=== PATIENT | female | born 1935 | race Caucasian/White ===

== ENCOUNTER 2019-02-09 08:59 | Emergency (ER) | payer MEDICARE, BC ==
[~2019-02-09] VITALS: Ht 165.1 cm; Wt 55.0 kg
[2019-02-09] MEDS ORDERED: SODIUM CHLORIDE 0.9% 500 ML IV ONE (09:56)
[2019-02-09 11:34] LABS: BASOPHILS % 0.7 % (0.0-2.0); HEMATOCRIT. 31.9 % (36.0-48.0); HEMOGLOBIN. 11.1 g/dL (12.0-16.0); LYMPHOCYTES % 15.9 % (20.0-50.0); MEAN PLATELET VOLUME 7.4 fl (7.4-10.4); MONOCYTES % 10.2 % (2.0-8.0); NEUTROPHILS % 71.2 % (40.0-76.0); PLATELET 306 x1000/uL (130-400); RED BLOOD CELL COUNT 3.36 mill/uL (4.2-5.4); RED CELL DISTRIBUTION WIDTH 14.4 % (11.6-14.6)
[2019-02-09 11:41] LABS: CHLORIDE 105 mEq/L (98-107)
[2019-02-09 11:48] LABS: CREATINE KINASE 52 IU/L (26-192)
[2019-02-09 12:24] LABS: CLARITY URINE CLEAR (CLEAR); COLOR URINE YELLOW (YELLOW); KETONES URINE NEGATIVE (NEGATIVE); LEUKOCYTE ESTERASE URINE NEGATIVE (NEGATIVE); NITRITE URINE NEGATIVE (NEGATIVE); OCCULT BLOOD URINE NEGATIVE (NEGATIVE); PH URINE 6.5 (4.5-8.0); PROTEIN URINE NEGATIVE (NEGATIVE); SPECIFIC GRAVITY URINE 1.009 (1.005-1.030); UROBILINOGEN URINE 0.2 E.U./dL (0.2-1.0)
[2019-02-09 13:20] VITALS: BP 158/80
== END 2019-02-09 13:21 | disposition home or self-care (01) ==
LOC: ER 09:04
DX: R53.1 Weakness (principal); K59.00 Constipation, unspecified; J44.9 Chronic obstructive pulmonary disease, unspecified; I10 Essential (primary) hypertension
CPT/HCPCS: 36415; 70450; 71045; 80053; 81003; 82550; 82962; 83690; 83735; 83880; 84484; 85025; 93005; 99284; J7030

== ENCOUNTER 2019-05-25 08:06 | Inpatient (IN) | payer MEDICARE, BC ==
[~2019-05-25] VITALS: Ht 132.1 cm; Wt 47.6 kg
[2019-05-25] MEDS ORDERED: ASCO100T12 PO (08:18)
[2019-05-25] MEDS ORDERED: FLUT1AER IH (08:18)
[2019-05-25] MEDS ORDERED: LOSA50TA41 PO (08:18)
[2019-05-25] MEDS ORDERED: DOCU50LI25 PO (08:18)
[2019-05-25] MEDS ORDERED: HYDR5TAB8 PO (08:18)
[2019-05-25] MEDS ORDERED: AMLO10TA80 PO (08:18)
[2019-05-25] MEDS ORDERED: MULT-1195 PO (08:18)
[2019-05-25] MEDS ORDERED: ALBU4TAB6 PO (08:18)
[2019-05-25] MEDS ORDERED: CALC-30 PO (08:18)
[2019-05-25] MEDS ORDERED: FOLI20CA PO (08:18)
[2019-05-25] MEDS ORDERED: MOM PO (08:18)
[2019-05-25] MEDS ORDERED: ALD100 PO (08:18)
[2019-05-25] MEDS ORDERED: TOPUD PO (08:18)
[2019-05-25] MEDS ORDERED: OMEP10SU2 PO (08:18)
[2019-05-25] MEDS ORDERED: METO-396 PO (08:18)
[2019-05-25] MEDS ORDERED: TIMO5DRO27 OP (08:18)
[2019-05-25 10:02] LABS: BASOPHILS % 0.7 % (0.0-2.0); EOSINOPHILS % 1.4 % (0.0-5.0); HEMOGLOBIN. 13.4 g/dL (12.0-16.0); LYMPHOCYTES % 16.5 % (20.0-50.0); MEAN CORPUSCULAR HEMOGLOBIN 33.8 pg (28.0-32.0); MEAN CORPUSCULAR VOLUME 95.9 fL (81.0-99.0); MEAN PLATELET VOLUME 7.8 fl (7.4-10.4); MONOCYTES % 9.3 % (2.0-8.0); NEUTROPHILS % 72.1 % (40.0-76.0); PLATELET 309 x1000/uL (130-400); RED BLOOD CELL COUNT 3.96 mill/uL (4.2-5.4); RED CELL DISTRIBUTION WIDTH 15.8 % (11.6-14.6)
[2019-05-25 10:04] LABS: CHLORIDE 103 mEq/L (98-107)
[2019-05-25] MEDS ORDERED: SODIUM CHLORIDE 0.45% 1,000 ML IV SCH (14:37)
[2019-05-25] MEDS ORDERED: ZOLPIDEM TARTRATE 5MG TABLET PO PRN (14:45)
[2019-05-25] MEDS ORDERED: ACETAMINOPHEN 325MG TABLET PO PRN (14:45)
[2019-05-25] MEDS ORDERED: CLONIDINE 0.1MG TABLET PO PRN (14:45)
[2019-05-25] MEDS ORDERED: MAGNESIUM/ALUMINUM HYDROXIDE/SIMETHICONE 30ML UDC PO PRN (14:45)
[2019-05-25] MEDS ORDERED: HYDROCODONE/ACETAMINOPHEN 5/325MG TABLET PO PRN (14:45)
[2019-05-25] MEDS ORDERED: GUAIFENESIN 200MG/10ML SUGAR FREE UDC PO PRN (14:45)
[2019-05-25] MEDS ORDERED: ONDANSETRON HCL 4MG/2ML INJ IV PRN (14:45)
[2019-05-25] MEDS ORDERED: IPRATROPIUM/ALBUTEROL 0.5-3(2.5)MG/3ML NEB NEB PRN (14:45)
[2019-05-25] MEDS ORDERED: DOCUSATE SODIUM 100MG CAPSULE PO PRN (14:45)
[2019-05-25] MEDS ORDERED: AMLODIPINE 10MG TABLET PO NR (16:00)
[2019-05-25 20:35] VITALS: BP 156/105
[2019-05-25] MEDS ORDERED: IBUP100T53 PO (23:46)
[2019-05-25] MEDS ORDERED: TIOT18CA3 IH (23:46)
[2019-05-26] VITALS: BP 135/69
[2019-05-26 04:00] VITALS: BP 119/61
[2019-05-26 07:17] LABS: BASOPHILS % 0.7 % (0.0-2.0); EOSINOPHILS % 1.6 % (0.0-5.0); HEMATOCRIT. 36.5 % (36.0-48.0); HEMOGLOBIN. 12.8 g/dL (12.0-16.0); LYMPHOCYTES % 17.6 % (20.0-50.0); MEAN CORPUSCULAR HEMOGLOBIN 33.8 pg (28.0-32.0); MEAN CORPUSCULAR VOLUME 96.3 fL (81.0-99.0); MEAN PLATELET VOLUME 7.9 fl (7.4-10.4); MONOCYTES % 10.1 % (2.0-8.0); PLATELET 253 x1000/uL (130-400); RED BLOOD CELL COUNT 3.79 mill/uL (4.2-5.4); RED CELL DISTRIBUTION WIDTH 16.7 % (11.6-14.6)
[2019-05-26 07:27] LABS: CHLORIDE 102 mEq/L (98-107)
[2019-05-26 08:00] VITALS: BP 99/54
[2019-05-26 08:03] LABS: LDL CHOLESTEROL 76 mg/dL (5-100)
[2019-05-26 08:06] LABS: HDL CHOLESTEROL 73 mg/dL (40-59); T4 FREE 1.35 ng/dL (0.76-1.46)
[2019-05-26] MEDS ORDERED: AMLODIPINE 10MG TABLET PO SCH (09:00)
[2019-05-26] MEDS ORDERED: ENOXAPARIN 30MG/0.3ML SYR SUBCUT SCH (09:00)
[2019-05-26] MEDS: SODIUM CHLORIDE 1000MG TABLET PO SCH ×2 (10:00→13:00)
[2019-05-26] MEDS ORDERED: PANTOPRAZOLE 40MG DR TABLET PO SCH (10:00)
[2019-05-26] MEDS ORDERED: ALBUTEROL 6.7GM HFA INHALER ORI PRN (10:00)
[2019-05-26] MEDS ORDERED: ASCORBIC ACID 500 MG TABLET PO SCH (11:00)
[2019-05-26] MEDS ORDERED: FOLIC ACID 1MG TABLET PO SCH (11:00)
[2019-05-26] MEDS ORDERED: SPIRONOLACTONE 50MG TABLET PO SCH (11:00)
[2019-05-26] MEDS ORDERED: HYDROCORTISONE 10MG TABLET PO SCH (11:00)
[2019-05-26 11:57] VITALS: BP 130/77
[2019-05-26 12:00] VITALS: BP 130/77
== END 2019-05-26 15:20 | disposition home or self-care (01) | DRG 74 ==
LOC: ER 08:06 → 6WST 13:55 → ENRESERV 19:01
PROVIDERS: ADMIT Hospitalist; ATTEND Hospitalist
DX: G90.8 Other disorders of autonomic nervous system (principal); E44.1 Mild protein-calorie malnutrition; E86.0 Dehydration; I10 Essential (primary) hypertension; J45.909 Unspecified asthma, uncomplicated; J44.9 Chronic obstructive pulmonary disease, unspecified; Z85.828 Personal history of other malignant neoplasm of skin; Z68.27 Body mass index [BMI] 27.0-27.9, adult
CPT/HCPCS: 36415; 71045; 80053; 80061; 83880; 84439; 84443; 84484; 85025; 93005; 93306; 93970; 96360; 97161; 99285; J1650

== ENCOUNTER 2020-05-30 16:44 | Inpatient (IN) | payer MEDICARE, BC ==
[~2020-05-30] VITALS: Ht 162.6 cm; Wt 59.9 kg
[~2020-05-30 16:44] MED LIST: ALBU4TAB6 PO; IBUP100T53 PO; TIMO5DRO27 OP; TIOT18CA3 IH
[2020-05-30 18:00] LABS: BASOPHILS % 0.3 % (0.0-2.0); EOSINOPHILS % 0.9 % (0.0-5.0); HEMATOCRIT. 37.9 % (36.0-48.0); HEMOGLOBIN. 13.6 g/dL (12.0-16.0); LYMPHOCYTES % 7.1 % (20.0-50.0); MEAN CORPUSCULAR HEMOGLOBIN 34.5 pg (28.0-32.0); MEAN CORPUSCULAR VOLUME 96.2 fL (81.0-99.0); MEAN PLATELET VOLUME 6.8 fl (7.4-10.4); MONOCYTES % 5.8 % (2.0-8.0); NEUTROPHILS % 85.9 % (40.0-76.0); PLATELET 323 x1000/uL (130-400); RED BLOOD CELL COUNT 3.94 mill/uL (4.2-5.4); RED CELL DISTRIBUTION WIDTH 14.5 % (11.6-14.6)
[2020-05-30 18:05] LABS: CHLORIDE 93 mEq/L (98-107)
[2020-05-30 18:09] LABS: ETHANOL BLOOD < 10 mg/dL
[2020-05-30] MEDS ORDERED: CEFTRIAXONE 1 G PREMIX 50 ML IV ONE (18:45)
[2020-05-30] MEDS ORDERED: AZITHROMYCIN 500 MG in DEXT 5% WATER 250 ML IV SCH (18:45)
[2020-05-30] MEDS ORDERED: DOCUSATE SODIUM 100MG CAPSULE PO PRN (20:30)
[2020-05-30] MEDS ORDERED: IPRATROPIUM/ALBUTEROL 0.5-3(2.5)MG/3ML NEB HHN PRN (20:30)
[2020-05-30] MEDS ORDERED: MAGNESIUM/ALUMINUM HYDROXIDE/SIMETHICONE 30ML UDC PO PRN (20:30)
[2020-05-30] MEDS ORDERED: ACETAMINOPHEN 325MG TABLET PO PRN (20:30)
[2020-05-30] MEDS ORDERED: CLONIDINE 0.1MG TABLET PO PRN (20:30)
[2020-05-30] MEDS: SODIUM CHLORIDE 0.9% 1,000 ML IV SCH (20:30)
[2020-05-30] MEDS ORDERED: ONDANSETRON HCL 4MG/2ML INJ IV PRN (20:30)
[2020-05-30] MEDS ORDERED: GUAIFENESIN 200MG/10ML SUGAR FREE UDC PO PRN (20:30)
[2020-05-30 20:42] LABS: CLARITY URINE CLEAR (CLEAR); KETONES URINE NEGATIVE (NEGATIVE); LEUKOCYTE ESTERASE URINE TRACE (NEGATIVE); NITRITE URINE NEGATIVE (NEGATIVE); OCCULT BLOOD URINE NEGATIVE (NEGATIVE); PROTEIN URINE NEGATIVE (NEGATIVE); SPECIFIC GRAVITY URINE 1.011 (1.005-1.030); UROBILINOGEN URINE 0.2 E.U./dL (0.2-1.0)
[2020-05-30] MEDS: PIPERACILLIN/TAZ 3.375G PREMIX 50 ML IV SCH (21:00)
[2020-05-30 21:07] LABS: *COCAINE SCREEN URINE NEGATIVE (NEGATIVE); COLOR URINE YELLOW (YELLOW); METHADONE URINE SCREEN NEGATIVE (NEGATIVE); OPIATES URINE SCREEN NEGATIVE (NEGATIVE); PHENCYCLIDINE URINE SCREEN NEGATIVE (NEGATIVE)
[2020-05-30 21:08] LABS: *AMPHETAMINES SCREEN URINE NEGATIVE (NEGATIVE); *BARBITURATES SCREEN URINE NEGATIVE (NEGATIVE); *BENZODIAZEPINES SCREEN URINE NEGATIVE (NEGATIVE); CANNABINOID URINE SCREEN NEGATIVE (NEGATIVE)
[2020-05-30] MEDS: ENOXAPARIN 40MG/0.4ML SYR SUBCUT SCH (21:16)
[2020-05-31 04:54] LABS: BASOPHILS % 0.3 % (0.0-2.0); EOSINOPHILS % 2.5 % (0.0-5.0); HEMATOCRIT. 36.9 % (36.0-48.0); LYMPHOCYTES % 13.8 % (20.0-50.0); MEAN CORPUSCULAR HEMOGLOBIN 33.7 pg (28.0-32.0); MEAN CORPUSCULAR VOLUME 95.6 fL (81.0-99.0); MEAN PLATELET VOLUME 7.1 fl (7.4-10.4); MONOCYTES % 8.6 % (2.0-8.0); NEUTROPHILS % 74.8 % (40.0-76.0); PLATELET 330 x1000/uL (130-400); RED BLOOD CELL COUNT 3.86 mill/uL (4.2-5.4); RED CELL DISTRIBUTION WIDTH 14.6 % (11.6-14.6)
[2020-05-31 04:59] LABS: CHLORIDE 97 mEq/L (98-107)
[2020-05-31 05:06] LABS: LDL CHOLESTEROL 91 mg/dL (5-100)
[2020-05-31 05:07] LABS: HDL CHOLESTEROL 91 mg/dL (40-59)
[2020-05-31] MEDS: PIPERACILLIN/TAZ 3.375G PREMIX 50 ML IV SCH (05:54)
[2020-05-31] MEDS: ASPIRIN 81MG EC TABLET PO SCH (09:00)
[2020-05-31 10:54] VITALS: BP 122/78
[2020-05-31] MEDS ORDERED: FLUT1DIS3 INH (12:39)
[2020-05-31] MEDS ORDERED: METO-396 MT (12:41)
[2020-05-31] MEDS ORDERED: HYDR20TA22 MT (12:42)
[2020-05-31] MEDS ORDERED: AMLO5TAB88 MT (12:42)
[2020-05-31] MEDS ORDERED: SPIR25TA MT (12:43)
[2020-05-31] MEDS ORDERED: LOSA25TA26 MT (12:43)
[2020-05-31] MEDS ORDERED: FOLI20CA PO (12:44)
[2020-05-31] MEDS ORDERED: DOCU100T MT (12:45)
[2020-05-31] MEDS ORDERED: OMEP40CA12 MT (12:45)
[2020-05-31] MEDS ORDERED: CALC1TAB4 MT (12:48)
[2020-05-31] MEDS ORDERED: MULT1TAB7 MT (12:48)
[2020-05-31] MEDS ORDERED: CHOL1CRY2 MC (12:49)
[2020-05-31] MEDS ORDERED: CLOP75TA33 MT (12:50)
[2020-05-31] MEDS: PIPERACILLIN/TAZOBACTAM 3.375 G in DEXT 5% WATER 100 ML IV SCH ×2 (14:10→21:38)
[2020-05-31] MEDS: SODIUM CHLORIDE 0.9% 1,000 ML IV SCH ×2 (14:10→21:39)
[2020-05-31 20:00] VITALS: BP 125/64
[2020-05-31] MEDS: ENOXAPARIN 40MG/0.4ML SYR SUBCUT SCH (21:37)
[2020-06-01] VITALS: BP 136/66
[2020-06-01 04:00] VITALS: BP 132/59
[2020-06-01] MEDS: PIPERACILLIN/TAZOBACTAM 3.375 G in DEXT 5% WATER 100 ML IV SCH ×4 (05:48→21:01)
[2020-06-01 08:00] VITALS: BP 128/54
[2020-06-01] MEDS: ASPIRIN 81MG EC TABLET PO SCH (09:19)
[2020-06-01] MEDS: OMEPRAZOLE 20MG CAPSULE EXTENDED RELEASE PO SCH (10:35)
[2020-06-01] MEDS: FOLIC ACID 1MG TABLET PO SCH (10:35)
[2020-06-01] MEDS: DOCUSATE SODIUM 100MG CAPSULE PO SCH ×2 (10:36→18:11)
[2020-06-01] MEDS: CLOPIDOGREL 75MG TABLET PO SCH (10:36)
[2020-06-01] MEDS: LOSARTAN POTASSIUM 25 MG TABLET PO SCH (10:36)
[2020-06-01] MEDS: SPIRONOLACTONE 25MG TABLET PO SCH (10:41)
[2020-06-01] MEDS: SODIUM CHLORIDE 0.9% 1,000 ML IV SCH (13:13)
[2020-06-01 13:49] VITALS: BP 144/87
[2020-06-01] MEDS ORDERED: LACTULOSE 20G/30ML UDC PO PRN ×2 (14:30→14:45)
[2020-06-01] MEDS ORDERED: NA PHOS,M-B/NA PHOS,DI-BA ENEMA 118ML PR NR (14:43)
[2020-06-01 16:00] VITALS: BP 137/72
[2020-06-01 20:00] VITALS: BP 135/66
[2020-06-01] MEDS: TIMOLOL MALEATE 0.5% OPHTH DROPS 5ML EACHEYE SCH (20:43)
[2020-06-01] MEDS: ENOXAPARIN 40MG/0.4ML SYR SUBCUT SCH (20:43)
[2020-06-02] VITALS (7 sets, daily range): BP systolic 133–171; BP diastolic 68–90
[2020-06-02] MEDS: SODIUM CHLORIDE 0.9% 1,000 ML IV SCH (00:49)
[2020-06-02] MEDS: PIPERACILLIN/TAZOBACTAM 3.375 G in DEXT 5% WATER 100 ML IV SCH (06:08)
[2020-06-02] MEDS: OMEPRAZOLE 20MG CAPSULE EXTENDED RELEASE PO SCH (06:13)
[2020-06-02] MEDS: DOCUSATE SODIUM 100MG CAPSULE PO SCH ×2 (08:48→17:57)
[2020-06-02] MEDS: FOLIC ACID 1MG TABLET PO SCH (08:49)
[2020-06-02] MEDS: AMLODIPINE 5MG TABLET PO SCH (08:49)
[2020-06-02] MEDS: SPIRONOLACTONE 25MG TABLET PO SCH (08:49)
[2020-06-02] MEDS: CLOPIDOGREL 75MG TABLET PO SCH (08:49)
[2020-06-02] MEDS: LOSARTAN POTASSIUM 25 MG TABLET PO SCH (08:50)
[2020-06-02] MEDS: ASPIRIN 81MG EC TABLET PO SCH (08:50)
[2020-06-02] MEDS: TIMOLOL MALEATE 0.5% OPHTH DROPS 5ML EACHEYE SCH ×2 (08:51→21:29)
[2020-06-02 10:46] LABS: CHLORIDE 90 mEq/L (98-107)
[2020-06-02 12:17] LABS: BASOPHILS % 0.9 % (0.0-2.0); HEMATOCRIT. 34.2 % (36.0-48.0); HEMOGLOBIN. 12.5 g/dL (12.0-16.0); LYMPHOCYTES % 11.2 % (20.0-50.0); MEAN CORPUSCULAR HEMOGLOBIN 34.6 pg (28.0-32.0); MEAN CORPUSCULAR VOLUME 94.7 fL (81.0-99.0); MONOCYTES % 11.8 % (2.0-8.0); NEUTROPHILS % 70.1 % (40.0-76.0); PLATELET 304 x1000/uL (130-400); RED BLOOD CELL COUNT 3.61 mill/uL (4.2-5.4); RED CELL DISTRIBUTION WIDTH 14.3 % (11.6-14.6)
[2020-06-02] MEDS: SODIUM CHLORIDE 1000MG TABLET PO SCH ×2 (12:51→17:57)
[2020-06-02] MEDS: HYDROCORTISONE 10MG TABLET PO SCH ×2 (13:01→17:56)
[2020-06-02] MEDS: ENOXAPARIN 40MG/0.4ML SYR SUBCUT SCH (21:30)
[2020-06-03] VITALS: BP 139/90
[2020-06-03 04:00] VITALS: BP 133/65
[2020-06-03 08:00] VITALS: BP 149/62
[2020-06-03 08:19] LABS: CHLORIDE 92 mEq/L (98-107)
[2020-06-03] MEDS: LOSARTAN POTASSIUM 25 MG TABLET PO SCH (09:00)
[2020-06-03] MEDS: AMLODIPINE 5MG TABLET PO SCH (09:00)
[2020-06-03] MEDS: OMEPRAZOLE 20MG CAPSULE EXTENDED RELEASE PO SCH (09:35)
[2020-06-03] MEDS: DOCUSATE SODIUM 100MG CAPSULE PO SCH ×2 (09:35→17:14)
[2020-06-03] MEDS: TIMOLOL MALEATE 0.5% OPHTH DROPS 5ML EACHEYE SCH ×2 (09:35→21:50)
[2020-06-03] MEDS: HYDROCORTISONE 10MG TABLET PO SCH ×2 (09:36→19:03)
[2020-06-03] MEDS: SODIUM CHLORIDE 1000MG TABLET PO SCH ×2 (09:37→17:14)
[2020-06-03] MEDS: SPIRONOLACTONE 25MG TABLET PO SCH (09:37)
[2020-06-03] MEDS: ASPIRIN 81MG EC TABLET PO SCH (09:37)
[2020-06-03] MEDS: FOLIC ACID 1MG TABLET PO SCH (09:42)
[2020-06-03] MEDS: CLOPIDOGREL 75MG TABLET PO SCH (10:07)
[2020-06-03 12:00] VITALS: BP 136/82
[2020-06-03 15:52] LABS: BG BASE EXCESS -3.7 mmol/L (-2.0-2.0); BG CARBOXYHEMOGLOBIN 1.3 % (0.5-1.5); BG DEOXYHEMOGLOBIN 3.4 % (0.0-5.0); BG FRACTION INSPIRED OXYGEN 21; BG HCO3 ACT 19.1 mmol/L (22.0-26.0); BG METHEMOGLOBIN 0.1 % (0.0-1.5); BG OXYGEN SATURATION 96.6 % (92.0-98.5); BG OXYHEMOGLOBIN 95.2 % (94.0-97.0); BG PCO2 28.6 mmHg (35.0-45.0); BG PH 7.443 (7.350-7.450); BG PO2 80.1 mmHg (75.0-100.0); BG SAMPLE SITE RIGHT BRACHIAL; BG TOTAL HEMOGLOBIN 12.9 g/dL (12.0-18.0); BG VENT MODE ROOM AIR
[2020-06-03 16:00] VITALS: BP 124/69
[2020-06-03] MEDS ORDERED: SODIUM CHLORIDE 3% 250 ML IV NR (16:00)
[2020-06-03 16:08] LABS: T4 FREE 1.79 ng/dL (0.76-1.46)
[2020-06-03] MEDS: FLUDROCORTISONE ACETATE 0.1MG TABLET PO SCH (17:02)
[2020-06-03 20:00] VITALS: BP 144/64
[2020-06-03] MEDS: ENOXAPARIN 40MG/0.4ML SYR SUBCUT SCH (21:50)
[2020-06-04 04:00] VITALS: BP 148/76
[2020-06-04 06:15] LABS: CHLORIDE 101 mEq/L (98-107)
[2020-06-04] MEDS ORDERED: HYDROCORTISONE 10MG TABLET PO SCH (07:00)
[2020-06-04 08:00] VITALS: BP 134/61
[2020-06-04] MEDS: LOSARTAN POTASSIUM 25 MG TABLET PO SCH (08:49)
[2020-06-04] MEDS: TIMOLOL MALEATE 0.5% OPHTH DROPS 5ML EACHEYE SCH (08:50)
[2020-06-04] MEDS: CLOPIDOGREL 75MG TABLET PO SCH (08:50)
[2020-06-04] MEDS: FLUDROCORTISONE ACETATE 0.1MG TABLET PO SCH (08:50)
[2020-06-04] MEDS: ASPIRIN 81MG EC TABLET PO SCH (08:54)
[2020-06-04] MEDS: DOCUSATE SODIUM 100MG CAPSULE PO SCH ×2 (08:54→17:00)
[2020-06-04] MEDS: AMLODIPINE 5MG TABLET PO SCH (08:54)
[2020-06-04] MEDS: FOLIC ACID 1MG TABLET PO SCH (08:54)
[2020-06-04] MEDS: SPIRONOLACTONE 25MG TABLET PO SCH (08:54)
[2020-06-04] MEDS: SODIUM CHLORIDE 1000MG TABLET PO SCH ×2 (08:54→17:00)
[2020-06-04] MEDS ORDERED: FAMOTIDINE 20MG TABLET PO SCH (09:00)
[2020-06-04 12:00] VITALS: BP 145/88
[2020-06-04 16:00] VITALS: BP 124/62
[2020-06-04 16:18] VITALS: BP 145/88
[2020-06-04] MEDS: HYDROCORTISONE 10MG TABLET PO SCH (19:00)
[2020-06-05 09:12] LABS: VITAMIN D 25-OH 66.3 ng/mL (30.0-100.0)
== END 2020-06-04 18:40 | disposition home health service (06) | DRG 190 ==
LOC: ER 17:17 → MICUSO 18:46 → 7WST 05-31 10:05 → 8WST 06-01 08:21
PROVIDERS: ADMIT Hospitalist; ATTEND Hospitalist
DX: J44.0 Chronic obstructive pulmonary disease with (acute) lower respiratory infection (principal); J18.9 Pneumonia, unspecified organism; E87.1 Hypo-osmolality and hyponatremia; E46 Unspecified protein-calorie malnutrition; E27.1 Primary adrenocortical insufficiency; I10 Essential (primary) hypertension; Z20.822 Contact with and (suspected) exposure to COVID-19; M06.9 Rheumatoid arthritis, unspecified; R62.7 Adult failure to thrive; F17.210 Nicotine dependence, cigarettes, uncomplicated; Z86.16 Personal history of COVID-19; Z91.19 Patient's noncompliance with other medical treatment and regimen; Z68.22 Body mass index [BMI] 22.0-22.9, adult; Z82.49 Family history of ischemic heart disease and other diseases of the circulatory system; Z86.73 Personal history of transient ischemic attack (TIA), and cerebral infarction without residual deficits; Z79.899 Other long term (current) drug therapy; Z88.8 Allergy status to other drugs, medicaments and biological substances; Z91.048 Other nonmedicinal substance allergy status
CPT/HCPCS: 36415; 36600; 71045; 71250; 80048; 80053; 80061; 80305; 80320; 81003; 82085; 82088; 82140; 82306; 82375; 82533; 82550; 82805; 82962; 83605; 84134; 84439; 84443; 84484; 85025; 93005; 93306; 93970; 96365; 97162; 97166; 97530; 99285; J0456; J0696; J1650; J2543; J7060; U0003; G0480